=== PATIENT | male | born 1960 | race African-American/Black ===

== ENCOUNTER 2022-12-06 00:07 | Inpatient (IN) | payer OTHER ==
[~2022-12-06] VITALS: Ht 167.6 cm; Wt 103.6 kg
[2022-12-06] VITALS (15 sets, daily range): BP systolic 149–194; BP diastolic 89–136
[2022-12-06] MEDS ORDERED: PANTOPRAZOLE 40MG INJ 80 MG in 0.9%NACL 100ML 100 ML IV SCH (01:00)
[2022-12-06] MEDS ORDERED: LACTATED RINGERS 1000ML 1,000 ML IV ONE (01:00)
[2022-12-06] MEDS ORDERED: PANTOPRAZOLE 40 MG/VIAL IVP ONE (01:00)
[2022-12-06] MEDS ORDERED: CEFTRIAXONE 1G VIAL 1 GM in 0.9%NACL 50ML 50 ML IV ONE (01:00)
[2022-12-06] MEDS ORDERED: ONDANSETRON 4MG INJ IVP ONE ×2 (01:00→03:00)
[2022-12-06 01:32] LABS: BASOPHILS % (AUTO) 0.2 % (0.0-5.0); HEMATOCRIT 44.7 % (42-54); LYMPHOCYTES % (AUTO) 8.5 % (21.0-51.0); MEAN CORPUSCULAR HEMOGLOBIN 26.5 pg (27.0-33.0); MEAN CORPUSCULAR HGB CONC 33.6 g/dL (32.0-36.0); MEAN CORPUSCULAR VOLUME 78.8 fL (79-99); MONOCYTES % (AUTO) 5.3 % (3.0-13.0); NEUTROPHILS % (AUTO) 85.9 % (40.0-77.0); PLATELET COUNT (AUTO) 200 K/uL (130-400); RED BLOOD CELL COUNT(AUTO) 5.67 MIL/uL (4.50-6.20); RED CELL DISTRIBUTION WIDTH 12.8 % (11.0-15.5); WHITE BLOOD COUNT (AUTO) 8.1 K/uL (4.8-10.8)
[2022-12-06 01:33] LABS: ALBUMIN 2.7 g/dL (3.5-5.0); MAGNESIUM 1.3 mg/dL (1.80-2.40); TOTAL PROTEIN, SERUM 5.5 g/dL (6.0-8.3)
[2022-12-06 01:38] LABS: CREATININE 1.5 mg/dL (0.5-1.5); POTASSIUM 3.4 mmol/L (3.5-5.1)
[2022-12-06] MEDS ORDERED: DIPH50 PO (01:44)
[2022-12-06 01:46] LABS: INR 1.05 (0.85-1.15); PROTHROMBIN TIME 11.4 SEC (9.6-11.6)
[2022-12-06 01:47] LABS: PARTIAL THROMBOPLASTIN TIME 31.1 SEC (26.3-35.5)
[2022-12-06] MEDS ORDERED: CITA20TA17 PO (01:50)
[2022-12-06] MEDS ORDERED: MAGNESIUM 2GM PREMIX 50ML 50 ML IV ONE (02:00)
[2022-12-06] MEDS ORDERED: PROMETHAZINE HCL 25 MG/ML 1ML AMPULE IM ONE (02:00)
[2022-12-06 02:15] LABS: ABG OXYGEN SATURATION 81.3 % (95.0-99.0); BASE EXCESS,VENOUS BLOOD GAS -3.8 (-2.0-3.0); HCO3,VENOUS BLOOD GAS 16.7 (21.0-28.0); PCO2,VENOUS BLOOD GAS 21 (35-48); PH,VENOUS BLOOD GAS 7.513 (7.350-7.450)
[2022-12-06 02:45] LABS: PHENYTOIN (DILANTIN) 0.9 mcg/mL (10.0-20.0)
[2022-12-06 02:50] LABS: APPEARANCE,URINE CLEAR (CLEAR); BILIRUBIN,URINE NEGATIVE (NEGATIVE); COLOR,URINE LIGHT-YELLOW (YELLOW); GLUCOSE, URINE (UA) 200 mg/dL (NEGATIVE); KETONES,URINE 40 mg/dL (NEGATIVE); LEUKOCYTE ESTERASE ,URINE NEGATIVE Leu/uL (NEGATIVE); NITRATE,URINE NEGATIVE (NEGATIVE); PH,URINE 5.5 (5.0-8.0); PROTEIN,URINE NEGATIVE (NEGATIVE); UROBILINOGEN,URINE 0.2 mg/dL (0.2-1.0)
[2022-12-06 02:58] LABS: AMPHET/METH SCREEN,URINE NEGATIVE (NEGATIVE); BARBITURATE SCREEN, URINE NEGATIVE (NEGATIVE); BENZODIAZEPINES SCREEN,URINE NEGATIVE (NEGATIVE); CANNABINOID SCREEN,URINE NEGATIVE (NEGATIVE); COCAINE SCREEN,URINE NEGATIVE (NEGATIVE); OPIATE SCREEN,URINE NEGATIVE (NEGATIVE); PHENCYCLIDINE SCREEN,URINE NEGATIVE (NEGATIVE)
[2022-12-06] MEDS ORDERED: 0.9%NACL 1000ML 1,000 ML IV SCH ×2 (03:00)
[2022-12-06] MEDS ORDERED: LEVOFLOXACIN 750 MG/D5W 150ML BAG IVPB ONE (03:00)
[2022-12-06 03:01] LABS: OCCULT BLOOD,GASTRIC FLUID POSITIVE (NEGATIVE)
[2022-12-06] MEDS ORDERED: CEFTRIAXONE 1G VIAL ONE (03:11)
[2022-12-06 03:12] LABS: RBC,URINE 0-1 /HPF (0-1); WBC,URINE 0-1 /HPF (0-1)
[2022-12-06] MEDS ORDERED: OCTREOTIDE ACETATE 200 MCG/ML 5 ML VIAL ONE (03:44)
[2022-12-06] MEDS ORDERED: OCTREOTIDE ACETATE 100 MCG/ML AMP ONE (03:46)
[2022-12-06 03:50] LABS: ACETAMINOPHEN < 1 mcg/mL (10-29); SALICYLATE < 2.8 mg/dL (2.8-20.0)
[2022-12-06] MEDS ORDERED: OMEP20TA2 PO (03:59)
[2022-12-06] MEDS ORDERED: RISP1TAB89 PO (03:59)
[2022-12-06] MEDS ORDERED: PHEN100C23 PO (03:59)
[2022-12-06] MEDS ORDERED: TERA1CAP4 PO (03:59)
[2022-12-06] MEDS ORDERED: AMLO10TA4 PO (03:59)
[2022-12-06] MEDS ORDERED: HYDR12.54 PO (03:59)
[2022-12-06] MEDS ORDERED: ALBU90AE2 IH (03:59)
[2022-12-06] MEDS ORDERED: CLOT15C TP (03:59)
[2022-12-06] MEDS ORDERED: TRI115C TP (03:59)
[2022-12-06] MEDS ORDERED: MORPHINE 4 MG SYG IV PRN (04:00)
[2022-12-06] MEDS ORDERED: OCTREOTIDE ACETATE 100 MCG/ML AMP IV ONE (04:00)
[2022-12-06] MEDS ORDERED: HYDRALAZINE 20MG/ML VIAL IV PRN ×2 (04:00→12:00)
[2022-12-06] MEDS ORDERED: ONDANSETRON 4MG INJ IV PRN (04:00)
[2022-12-06] MEDS ORDERED: OCTREOTIDE ACETATE 1,250 MCG in 0.9% NACL 250ML 250 ML IV SCH ×4 (04:00)
[2022-12-06] MEDS ORDERED: MORPHINE 2 MG SYG IV PRN (04:00)
[2022-12-06] MEDS ORDERED: PHARMACY COMMUNICATION MISC SCH (04:00)
[2022-12-06] MEDS ORDERED: 0.9%NACL 1000ML 1,914 ML IV ONE (04:00)
[2022-12-06] MEDS ORDERED: MAGNESIUM 2GM PREMIX 50ML 50 ML IV PRN (04:00)
[2022-12-06] MEDS ORDERED: POTASSIUM CHLORIDE 20MEQ/100ML 100 ML IV PRN (04:00)
[2022-12-06 04:11] LABS: HEMOGLOBIN A1C 6.4 % (4.0-6.0)
[2022-12-06] MEDS ORDERED: LORAZEPAM 2 MG/ML 1 ML VIAL ONE (04:11)
[2022-12-06] MEDS: 0.9%NACL 1000ML 1,000 ML IV SCH ×2 (04:12→18:27)
[2022-12-06] MEDS ORDERED: LORAZEPAM 2 MG/ML 1 ML VIAL IVP ONE (04:30)
[2022-12-06] MEDS ORDERED: PANTOPRAZOLE 40MG INJ 80 MG in 0.9%NACL 100ML 100 ML IVP SCH (05:00)
[2022-12-06] MEDS: INSULIN HUMULIN R 100 UNIT/ML 3ML SQ SCH ×3 (06:00→18:27)
[2022-12-06] MEDS: ZOSYN 3.375GM+NS 50ML 50 ML IVPB SCH ×3 (06:21→20:41)
[2022-12-06] MEDS: METOCLOPRAMIDE 10 MG/2 ML VIAL IVP SCH ×3 (06:21→18:14)
[2022-12-06] MEDS ORDERED: PANTOPRAZOLE 40 MG/VIAL IVP SCH (09:00)
[2022-12-06] MEDS ORDERED: PHENYTOIN 100MG (50MG/ML) INJ 100 MG/2 ML ML IV SCH (09:30)
[2022-12-06] MEDS: PANTOPRAZOLE 40MG INJ 80 MG in 0.9%NACL 100ML 100 ML IVP SCH ×2 (10:07→20:41)
[2022-12-06 10:10] LABS: HEMATOCRIT 47.6 % (42-54)
[2022-12-06 10:32] LABS: MAGNESIUM 2.8 mg/dL (1.80-2.40); PHOSPHORUS 2.8 mg/dL (2.5-4.9)
[2022-12-06] MEDS ORDERED: [UNRECOGNIZED DRUG - OTHER] IV SCH (11:00)
[2022-12-06] MEDS ORDERED: PHENYTOIN IV SCH (11:00)
[2022-12-06] MEDS ORDERED: METOPROLOL TARTRATE 1 MG/ML 5ML VIAL IV ONE (11:57)
[2022-12-06] MEDS ORDERED: COMPOUND IV REFRIGERATED 1 EACH IVSOLN MISC PRN (12:00)
[2022-12-06] MEDS: METOPROLOL TARTRATE 1 MG/ML 5ML VIAL IV SCH ×2 (12:00→18:14)
[2022-12-06] MEDS: PHENYTOIN IV SCH (20:43)
[2022-12-06] MEDS: [UNRECOGNIZED DRUG - OTHER] IV SCH (20:43)
[2022-12-06 23:19] LABS: HEMATOCRIT 46.6 % (42-54)
[2022-12-07] MEDS: METOCLOPRAMIDE 10 MG/2 ML VIAL IVP SCH ×2 (00:08→05:44)
[2022-12-07] MEDS: METOPROLOL TARTRATE 1 MG/ML 5ML VIAL IV SCH ×3 (00:09→12:00)
[2022-12-07 00:10] VITALS: BP 174/95
[2022-12-07] MEDS: PANTOPRAZOLE 40MG INJ 80 MG in 0.9%NACL 100ML 100 ML IVP SCH ×2 (01:00→11:00)
[2022-12-07 04:00] VITALS: BP 157/92
[2022-12-07] MEDS: PHENYTOIN IV SCH (04:39)
[2022-12-07] MEDS: INSULIN HUMULIN R 100 UNIT/ML 3ML SQ SCH ×3 (04:39→12:00)
[2022-12-07] MEDS: [UNRECOGNIZED DRUG - OTHER] IV SCH (04:39)
[2022-12-07] MEDS: 0.9%NACL 1000ML 1,000 ML IV SCH (04:58)
[2022-12-07 05:01] LABS: BASOPHILS % (AUTO) 0.1 % (0.0-5.0); HEMATOCRIT 47.7 % (42-54); LYMPHOCYTES % (AUTO) 11.2 % (21.0-51.0); MEAN CORPUSCULAR HEMOGLOBIN 26.1 pg (27.0-33.0); MEAN CORPUSCULAR HGB CONC 32.9 g/dL (32.0-36.0); MEAN CORPUSCULAR VOLUME 79.4 fL (79-99); MONOCYTES % (AUTO) 12.2 % (3.0-13.0); PLATELET COUNT (AUTO) 196 K/uL (130-400); RED BLOOD CELL COUNT(AUTO) 6.01 MIL/uL (4.50-6.20); RED CELL DISTRIBUTION WIDTH 13.2 % (11.0-15.5)
[2022-12-07 05:16] LABS: CREATININE 1.3 mg/dL (0.5-1.5); POTASSIUM 3.7 mmol/L (3.5-5.1)
[2022-12-07] MEDS: ZOSYN 3.375GM+NS 50ML 50 ML IVPB SCH (05:41)
[2022-12-07 08:00] VITALS: BP 160/94
[2022-12-07] MEDS ORDERED: PANT40TA55 PO (08:07)
[2022-12-07] MEDS ORDERED: AMLODIPINE 5 MG TAB PO SCH (09:00)
[2022-12-07 12:00] VITALS: BP 144/96
[2022-12-07] MEDS ORDERED: COMPOUND IV MISC 1 EACH IVSOLN MISC PRN (12:00)
== END 2022-12-07 13:30 | DRG 378 ==
LOC: EEVIPCON 00:07 → EDH 00:07 → EDHIP 03:34 → 2CH 05:14 → 3DH 20:04
PROVIDERS: ADMIT Internal Medicine; ATTEND Internal Medicine
DX: K92.2 Gastrointestinal hemorrhage, unspecified (principal); E87.20 Acidosis, unspecified; Z20.822 Contact with and (suspected) exposure to COVID-19; I10 Essential (primary) hypertension; E11.65 Type 2 diabetes mellitus with hyperglycemia; E83.42 Hypomagnesemia; J44.9 Chronic obstructive pulmonary disease, unspecified; N40.0 Benign prostatic hyperplasia without lower urinary tract symptoms; G40.901 Epilepsy, unspecified, not intractable, with status epilepticus; E87.6 Hypokalemia; E66.09 Other obesity due to excess calories; Z68.36 Body mass index [BMI] 36.0-36.9, adult; Z91.199 Patient's noncompliance with other medical treatment and regimen due to unspecified reason
CPT/HCPCS: 36415; 36600; 70450; 71045; 74176; 80048; 80053; 80185; 80305; 81001; 82010; 82140; 82271; 82550; 82803; 82948; 83036; 83605; 83690; 83735; 84100; 84145; 84484; 85014; 85018; 85025; 85610; 85730; 86850; 86900; 86901; 87040; 87635; 87804; 93005; 99291; 99292; C9113; G0378; G0481; J0360; J0696; J1165; J1815; J1956; J2060; J2354; J2405; J2543; J2550; J2765; J3475; J3490; J7050; J7120